=== PATIENT | male | born 1940 | race Caucasian/White ===

== ENCOUNTER 2023-12-20 10:06 | Emergency (ER) | payer MEDICARE, BC, SELFPAY ==
[2023-12-20] VITALS (14 sets, daily range): BP systolic 122–151; BP diastolic 66–89; PULSE 67–93; RESP 12–16; TEMP 36.5; O2SAT 93–96; BMI 26.6
[2023-12-20 10:40] LABS: Lactate* 11.7 mmol/L (0.5-1.9)
--- NOTE | 2023-12-20 10:40 | ED_ITS ---
HPI - Seizure General Date Seen: 12/20/23 Chief Complaint: Seizure Stated Complaint: tremors Time Seen by Provider: 12/20/23 10:23 Source: patient, family and RN notes reviewed Mode of arrival: wheelchair Limitations: no limitations History of Present Illness HPI Narrative: This 83-year-old male was being brought in by family for evaluation of tremors. While he was waiting for the wheelchair in the parking lot, had a witnessed tonic clonic seizure. His notes the last 1 was maybe about 3 weeks ago. He was unresponsive in the vehicle, postictal reportedly by the time staff got to him. He had to be removed from the car. 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 He was supposedly was maybe having an ultrasound of his thyroid today, MRI later this week, has seen ENT with a Dr. Anuj Alegre in [place]. He does most of his cares at [facility]. His states that there was something wrong with him internally, she thinks that these are prompting the seizures. He has been off his Keppra for 3 months. She feels that the Keppra was just treating the symptoms not treating what was underlying wrong with him. He has had seizures for about 10 years, she states 1 time he had such severe kidney stones and pain and caused him to have seizures. She feels that he is maybe bleeding internally. She is wanting his problems worked up, someone to deal with his neck. I did review with her that patients with underlying seizure disorders usually have an area in the brain, can be there from or can be from an holds area of scarring where seizures developed from. We discussed that this is an abnormal brain activity. Certainly things can precipitate this that even can be medical but he most certainly has to have an underlying area or issue in the brain with this comes from. We did discuss as far as his thyroid, we are not a facility that has the capacity to do biopsies, diagnose or do any surgical intervention on something of this nature. He is alert at times but just looking around, postictal, not answering questions. As far as evaluation, we will start some blood work, will see if we can get any of his history but discussed with her that I would likely talk to Neurology whom may recommend anti epileptic medication. He had been on Keppra, supposedly does not tolerate it, has tried a different medicine before. He did not fall with this seizure, was in the car when it happened. MD complaint: seizure Related Data Allergies Allergy/AdvReac Type Severity Reaction Status Date / Time atorvastatin Allergy Unknown Hives Verified 12/20/23 10:55 diatrizoate sodium Allergy Unknown Hives Verified 12/20/23 10:55 Review of Systems Status of ROS: Reports: unobtainable due to medical condition (Postictal) PFSH PFS Social History Smoking Status: Smoker, status unknown Non-prescribed substance use: denies use Exam Const: Vital Signs, click to edit/add: Vital Signs - 24 hr 12/20/23 10:15 12/20/23 10:20 12/20/23 10:47 Temperature 97.7 F Pulse Rate 85 Pulse Rate [Pulse Oximeter] 93 Respiratory Rate 14 16 Blood Pressure 129/89 Blood Pressure [Le ft Upper Arm] 151/72 H Pulse Oximetry 96 96 94 Oxygen Delivery Me thod Room Air 12/20/23 11:01 Temperature Pulse Rate 80 Pulse Rate [Pulse Oximeter] Respiratory Rate 14 Blood Pressure 146/76 H Blood Pressure [Le ft Upper Arm] Pulse Oximetry 95 Oxygen Delivery Me thod This 83-year-old male is lying in the bed, he is arousable and will look around, is not speaking. He is breathing easily on room air, hemodynamically stable. He has scarring that is old over his nose, likely prior surgery. Pupils are about 3-4 mm, round, conjugate gaze. He is not following commands. CV regular rate and rhythm, no murmur. Lungs are clear, no tachypnea, no accessory muscle use. Abdomen is soft, not distended, do not feel any masses organomegaly. He has no lower extremity edema. He will attempt to move around, rolled to his side, do see a moving his arms and legs. Documenting provider has reviewed patient's vital signs: yes Course Course ED Course: Patient will be on cardiac monitoring and pulse oximetry. He is postictal currently. Will get appropriate labs, see if we can talk to [facility] once I have those labs back. Reevaluation(s) Time of Reevaluation #1: 11:45 Reevaluation #1: Patient is doing jaw twitching, did answer yes to me when asked where he knew where he was but isn't really answering. His states when he was doing this jaw twitching when he was at [facility] about a week ago or so, he could not even talk. I do think that this might be a partial complex seizure. We are going to try dose of IV Ativan, will talk to Neurology at [facility]. If the Ativan does stop this, he may need IV medication. His states that about 15 minutes ago, was talking to him but was confused about the monitors that were hooked up to him. Time of Reevaluation #2: 12:44 Reevaluation #2: Did speak with pharmacy regarding dosing for loading for the Keppra, we will go with 2 g IV per my discussion with pharmacy. Patient is alert now, conversive. I do think his jaw movement and lack of speaking at the time might be a partial complex seizure. They have agreed to go back on the Keppra, his states they have plenty of Keppra tablets at home. They do have the appointment for the thyroid ultrasound at 2:30 a.m. this afternoon, we will hopefully have them discharged in time to go have that done. I do think he is stable for discharge at this time but will get him loaded with IV Keppra. Consultations Consultation #1: Called [facility] triage at 12:06 p.m. spoke with triage nurse Padmini MATT. She did call back and I spoke with Dr. Blount from Neurology. She agrees this patient needs to be on antiseizure medicine, Keppra has the least side effect profile usually. I reviewed with her that I do think he is having partial complex seizures with this jaw movement. She stated that might be atypical but it is certainly possible. Time: 12:23 Vital Signs Vital signs: Initial Vital Signs Temperature 97.7 F 12/20/23 10:15 Temperature Source Temporal Artery Scan 12/20/23 10:15 Pulse Rate 93 12/20/23 10:15 Pulse Rhythm Regular 12/20/23 10:15 Respiratory Rate 14 12/20/23 10:15 Blood Pressure 151/72 H 12/20/23 10:15 Blood Pressure Mean 98 12/20/23 10:15 Blood Pressure Position Supine 12/20/23 10:15 Pulse Oximetry 96 12/20/23 10:15 Oxygen Delivery Method Room Air 12/20/23 10:15 Vital Signs Temperature 97.7 F 12/20/23 10:15 Pulse Rate 93 12/20/23 10:15 Respiratory Rate 14 12/20/23 10:15 Blood Pressure 151/72 H 12/20/23 10:15 Pulse Oximetry 96 12/20/23 10:15 Oxygen Delivery Method Room Air 12/20/23 10:15 Temperature 97.7 F 12/20/23 10:15 Pulse Rate 80 12/20/23 11:01 Respiratory Rate 14 12/20/23 11:01 Blood Pressure 146/76 H 12/20/23 11:01 Pulse Oximetry 95 12/20/23 11:01 Oxygen Delivery Method Room Air 12/20/23 10:15 Medications Administered Medications: Discontinued Medications Generic Name Dose Route Start Last Admin Trade Name Freq PRN Reason Stop Dose Admin Lorazepam 1 mg 12/20/23 11:52 12/20/23 12:13 Lorazepam 2 Mg/Ml Inj IVP 12/20/23 11:53 1 mg ONCE ONE Administration MDM - Seizure Lab Data Attestation: I reviewed the patient's lab results. Labs: Lab Results 12/20/23 12/20/23 Range/Units 10:24 11:58 WBC 5.75 (4.50-11.00) K/uL RBC 3.83 L (4.30-5.90) m/uL Hgb 11.9 L (13.5-17.5) gm/dL Hct 38.6 (37.0-53.0) % MCV 101 H (80-100) fL MCH 31 (26-34) pg MCHC 31 L (32-36) gm/dL RDW Coeff of Korey 15.1 (11.5-15.5) % Plt Count 102 L (140-440) K/uL Neut % (Auto) 59.9 (42.0-72.0) % Lymph % (Auto) 22.3 (20-44) % Ferry % (Auto) 9.9 (0.0-11.0) % Eos % (Auto) 2.6 (0.0-7.0) % Baso % (Auto) 0.3 (0.0-3.0) % Neut # (Auto) 3.44 (1.7-7.0) K/uL Lymph # (Auto) 1.28 (0.90-2.90) K/uL Ferry # (Auto) 0.60 (0.00-0.90) K/UL Eos # (Auto) 0.15 (0.00-0.50) K/uL Baso # (Auto) 0.02 (0.00-0.30) K/uL Abs Immat Gran (auto) 0.29 (0.00-0.30) K/uL Imm/Tot Granulo (auto) 5.0 % Diff Slide Review Acceptable Review (Acceptable) Sodium 143 (135-149) mmol/L Potassium 3.5 L (3.6-5.1) mmol/L Chloride 113 (96-114) mmol/L Carbon Dioxide 13 L (20-32) mmol/L Anion Gap 17 H (7-15) mEq/L BUN 12 (7-30) mg/dL Creatinine 0.9 (0.5-1.5) mg/dL Estimated Creat Clear 54.17 Estimated GFR 86 ml/min Glucose 193 H (60-115) mg/dL Lactate 11.7 H* (0.5-1.9) mmol/L Calcium 9.1 (8.4-10.6) mg/dL Magnesium 2.0 (1.5-2.6) mg/dL Total Bilirubin 1.1 (0.1-1.5) mg/dL AST 51 H (12-35) U/L ALT 42 (4-50) U/L Alkaline Phosphatase 80 (40-150) U/L C-Reactive Protein < 0.5 L (0.5-1.0) mg/dL Total Protein 7.9 (6.0-8.3) g/dL Albumin 4.5 (3.3-5.0) g/dL TSH 19.200 H (0.270-4.200) uIU/mL Lab Acknowledgement Test Added Discharge Plan Discharge Clinical Impression: Seizure disorder Patient Disposition: Home, Self-Care Condition: Stable Instructions: Recurrent Seizures in Adults (ED) Additional Instructions: Need to go back on Keppra 1000 mg twice a day. Follow-up with primary care provider within the next 1-[address] not to drive with your active seizure disorder. Follow-up this afternoon to get the thyroid ultrasound done and complete the test that have been set up for you for the thyroid. May need to see Neurology if you have ongoing issues with seizures. Activity Level: Activity as Tolerated Follow Up/Referrals: Provider,Not a Local [Primary Care Provider] - Stand Alone Forms: [employer] Info Instructions
[2023-12-20 10:50] LABS: Chloride* 113 mmol/L (96-114)
[2023-12-20 10:51] LABS: Albumin* 4.5 g/dL (3.3-5.0); Potassium* 3.5 mmol/L (3.6-5.1); Sodium* 143 mmol/L (135-149)
[2023-12-20 10:53] LABS: Creatinine* 0.9 mg/dL (0.5-1.5); Est. Creatinine Clearance* 54.17; Estimated Glomerular Filt Rate 86 ml/min
[2023-12-20 10:54] LABS: Alkaline Phosphatase* 80 U/L (40-150); Anion Gap 17 mEq/L (7-15); Aspartate Amino Transferase* 51 U/L (12-35); Basophils Absolute Auto 0.02 K/uL (0.00-0.30); Basophils Percent Auto 0.3 % (0.0-3.0); Bilirubin Total* 1.1 mg/dL (0.1-1.5); Blood Urea Nitrogen* 12 mg/dL (7-30); Calcium* 9.1 mg/dL (8.4-10.6); Carbon Dioxide* 13 mmol/L (20-32); Eosinophils Absolute Auto 0.15 K/uL (0.00-0.50); Eosinophils Percent Auto 2.6 % (0.0-7.0); Glucose* 193 mg/dL (60-115); Hematocrit 38.6 % (37.0-53.0); Hemoglobin* 11.9 gm/dL (13.5-17.5); Immature Granulocytes Abs Auto 0.29 K/uL (0.00-0.30); Lymphocytes Absolute Auto 1.28 K/uL (0.90-2.90); Lymphocytes Percent Auto 22.3 % (20-44); Mean Corpuscular HGB Conc 31 gm/dL (32-36); Mean Corpuscular Hemoglobin 31 pg (26-34); Mean Corpuscular Volume 101 fL (80-100); Monocytes Percent Auto 9.9 % (0.0-11.0); Neutrophils Absolute Auto 3.44 K/uL (1.7-7.0); Neutrophils Percent Auto 59.9 % (42.0-72.0); Platelet Count* 102 K/uL (140-440); RDW Coefficient of Variation % 15.1 % (11.5-15.5); Red Blood Count 3.83 m/uL (4.30-5.90); Total Protein* 7.9 g/dL (6.0-8.3); White Blood Count* 5.75 K/uL (4.50-11.00)
[2023-12-20 10:59] LABS: C Reactive Protein* < 0.5 mg/dL (0.5-1.0)
[2023-12-20 11:05] LABS: Slide Review Reflex Yes
[2023-12-20 11:24] LABS: Alanine Aminotransferase* 42 U/L (4-50)
[2023-12-20 11:39] LABS: Slide Review Acceptable Review (Acceptable)
[2023-12-20] MEDS: LORazepam 2 MG/ML inj 1 MG IVP (12:13)
[2023-12-20 13:33] LABS: Free T4 Free Thyroxine* 1.39 ng/dL (0.70-1.85)
== END 2023-12-20 13:30 | disposition home or self-care (01) ==
PROVIDERS: Emergency Provider Family Medicine
DX: G40.909 Epilepsy, unspecified, not intractable, without status epilepticus (principal)
CPT/HCPCS: 36415; 80053; 83605; 83735; 84439; 84443; 85025; 86140; 94761; 96365; 96375; 99284; 99291; J1953; J2060